=== PATIENT | male | born 1960 | race Caucasian/White ===

== ENCOUNTER → 2020-07-12 13:34 | Outpatient (BNVA) | payer MEDICARE, MEDICAID, SELFPAY | PROVIDERS: PCP Nurse Practitioner Family; Visit Provider Internal Medicine | DX: M06.9 Rheumatoid arthritis, unspecified (principal); Z11.1 Encounter for screening for respiratory tuberculosis; Z11.59 Encounter for screening for other viral diseases; Z87.891 Personal history of nicotine dependence; M19.041 Primary osteoarthritis, right hand; M85.841 Other specified disorders of bone density and structure, right hand; M85.842 Other specified disorders of bone density and structure, left hand | CPT/HCPCS: 36415; 73120; 80053; 85025; 85651; 86140; 86480; 86704; 86803; 87340; 99204 ==

== ENCOUNTER 2020-07-12 14:49 | Outpatient (CLI) | payer MEDICARE, MEDICAID, SELFPAY ==
--- NOTE | 2020-07-12 15:00 | XR_ITS ---
WS: [id number] TECHNIQUE: 2 views of the right hand CLINICAL INFORMATION: M06.9 - Rheumatoid arthritis, unspecified COMPARISON: None. FINDINGS: Osteopenia. 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 Moderate to sev ere narrowing at the radiocarpal joint with subchondral sclerosis. A few erosions involving the carpa l bones. Small erosions involving the metacarpal heads worse involving the second and third metacarpa l heads. Chronic destruction of the second and third MCP joints with bony fusion across the joint. Mi ld narrowing of the IP joints. XR/XR hand RT 2V [id number] IMPRESSION: 1. 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 3. Erosive changes involving the second and third metacarpal heads with chroni c appearing ankylosis and bony fusion across the second and third MCP joints. 4. Osteopenia.
--- NOTE | 2020-07-12 15:00 | XR_ITS ---
WS: [id number] TECHNIQUE: 2 views of the left hand CLINICAL INFORMATION: M06.9 - Rheumatoid arthritis, unspecified COMPARISON: None. FINDINGS: A few small erosions involving the metacarpal heads. Mild IP joint space narrowing. Mild joint space narrowing involving the first second and third MCP joints. Erosive changes involving the distal ulna at the TFCC and DRUJ. Radiocarpal joint: Moderate to severe narrowing with subchondral sclerosis. Carpal bones: Subchondral erosive changes involving the proximal and distal carpal row. XR/XR hand LT 2V [id number] IMPRESSION: 1. A few small erosions involving the metacarpal heads and proximal and distal carpal row 2. Mild IP joint narrowing. 3. Moderate to severe narrowing of the radiocarpal joint. 4. Prominent erosions involving the distal ulna at the TFCC and DRUJ.
== END 2020-07-12 14:50 | disposition home or self-care (01) ==
PROVIDERS: PCP Nurse Practitioner Family; Visit Provider Internal Medicine
DX: M19.041 Primary osteoarthritis, right hand (principal); M85.841 Other specified disorders of bone density and structure, right hand; M85.842 Other specified disorders of bone density and structure, left hand; M06.9 Rheumatoid arthritis, unspecified; D86.9 Sarcoidosis, unspecified
CPT/HCPCS: 73120; 80053; 85025; 85651; 86140; 86480; 86704; 86803; 87340

== ENCOUNTER → 2021-01-08 12:46 | Outpatient (BNVA) | payer MEDICARE, MEDICAID, SELFPAY | PROVIDERS: PCP Nurse Practitioner Family; Visit Provider Internal Medicine | DX: M06.9 Rheumatoid arthritis, unspecified (principal); Z79.899 Other long term (current) drug therapy; Z87.891 Personal history of nicotine dependence | CPT/HCPCS: 99214 ==

== ENCOUNTER → 2021-08-01 10:01 | Outpatient (BNVA) | payer MEDICARE, MEDICAID, SELFPAY | PROVIDERS: PCP Nurse Practitioner Family; Visit Provider Internal Medicine | DX: M06.9 Rheumatoid arthritis, unspecified (principal); Z79.899 Other long term (current) drug therapy; G62.9 Polyneuropathy, unspecified; Z87.891 Personal history of nicotine dependence | CPT/HCPCS: 99214 ==